=== PATIENT | male | born 1940 | race Two or more races ===

== ENCOUNTER 2017-08-16 14:05 | Inpatient (IN) | payer OTHER ==
[~2017-08-16] VITALS: Ht 172.7 cm; Wt 67.3 kg
[2017-08-16] MEDS ORDERED: SODIUM CHLORIDE 0.9% 1,000 ML IVB ONE (14:38)
[2017-08-16 15:38] LABS: Basophils # (auto) 0 uL; Basophils % (auto) 0.6 % (0.0-2.0); Eosinophils # (auto) 0 uL; Eosinophils % (auto) 0.1 % (0.0-7.0); Hematocrit 43.7 % (41.0-53.0); Hemoglobin 14.1 g/dL (13.5-17.5); Lymphocytes # (auto) 1.3 uL; Lymphocytes % (auto) 15.8 % (10.0-50.0); Mean Corpuscular Hemoglobin 27.4 pg (28.0-32.0); Mean Corpuscular Hgb Conc. 32.3 g/dL (32.0-36.0); Mean Platelet Volume 8.5 fL (6.9-10.8); Monocytes # (auto) 0.6 uL; Monocytes % (auto) 7.3 % (0.0-12.0); Neutrophils # (auto) 6.3 uL; Neutrophils % (auto) 76.2 % (37.0-80.0); Nucleated Red Blood Cells % 0.1 %; Platelet Count (auto) 247 10^3/uL (140-450); Red Cell Distribution Width 17.9 % (11.8-14.3); White Blood Cell 8.3 10^3/uL (4.4-10.8)
[2017-08-16 15:52] LABS: INR 1.01 (0.9-1.15); Partial Thromboplastin Time 25.9 sec (22.64-33.71)
[2017-08-16 15:59] LABS: Albumin 3.7 g/dL (3.4-5.0); Alkaline Phosphatase 85 U/L (45-117); Anion Gap 9 (5-15); Aspartate Aminotransferase 18 U/L (15-37); BUN/Creatinine Ratio 7.5; Bilirubin, Total 0.7 mg/dL (0.2-1.0); Blood Urea Nitrogen 6 mg/dL (7-18); Calcium 8.8 mg/dL (8.5-10.1); Carbon Dioxide 23 mmol/L (21-32); Chloride 107 mmol/L (98-107); GFR African American 120 mL/min; GFR Non-African American 99 mL/min; Glucose 110 mg/dL (74-106); Magnesium 2.6 mg/dL (1.6-2.6); Potassium 3.5 mmol/L (3.5-5.1); Sodium 139 mmol/L (136-145); Total Protein 7.5 g/dL (6.4-8.2)
[2017-08-16] MEDS ORDERED: amLODIPine BESYLATE 5 MG TAB PO ONE (17:15)
[2017-08-16] MEDS ORDERED: TEMAZEPAM 15 MG CAP PO PRN (17:15)
[2017-08-16] MEDS ORDERED: ACETAMINOPHEN 500 MG TAB PO PRN (17:15)
[2017-08-16] MEDS ORDERED: LORazepam 0.5 MG TAB PO PRN (17:15)
[2017-08-16] MEDS ORDERED: MORPHINE SULF INJ 2 MG/ML SYRINGE 1ML IV PRN ×2 (17:15)
[2017-08-16] MEDS ORDERED: LACTULOSE 20Gm/30ML SOLN PO PRN (17:15)
[2017-08-16] MEDS ORDERED: HYDROcodone-ACET 5/325MG TAB PO PRN (17:15)
[2017-08-16] MEDS ORDERED: NITROGLYCERIN 0.4 MG SL TAB SL PRN (17:15)
[2017-08-16] MEDS ORDERED: PROMETHAZINE HCL 25 MG/ML 1ML IV PRN (17:15)
[2017-08-16] MEDS ORDERED: LABETALOL HCL 5 MG/ML ML 20ML VIAL IV PRN ×2 (17:15)
[2017-08-16 17:51] LABS: Cholesterol 169 mg/dL (< 200); HDL Cholesterol 77 mg/dL (40-59); LDL Cholesterol 91 mg/dL (< 100); Triglycerides 100 mg/dL (< 150)
[2017-08-16 17:56] LABS: Urine Bilirubin Negative (Negative); Urine Blood Negative /uL (Negative); Urine Color Yellow (Yellow); Urine Glucose Normal (Normal); Urine Ketone Negative (Negative); Urine Nitrite Negative (Negative); Urine RBC <1 /hpf (0 - 3); Urine Urobilinogen Normal (Negative)
[2017-08-16] MEDS: SODIUM CHLORIDE 0.9% 1,000 ML IV SCH (18:06)
[2017-08-16 18:30] LABS: Temperature: 23.7 C (20.0-25.0)
[2017-08-16 19:06] VITALS: BP 158/86
[2017-08-16] MEDS ORDERED: THIAMINE HCL 100 MG/ML 2ML VIAL IV ONE (20:00)
[2017-08-16] MEDS ORDERED: chlordiazePOXIDE HCL 5 MG CAP PO PRN (20:00)
[2017-08-16 21:43] VITALS: BP 136/83
[2017-08-16] MEDS ORDERED: ATORVASTATIN 20 MG TAB PO SCH (22:00)
[2017-08-17 05:40] VITALS: BP 131/76
[2017-08-17] MEDS: SODIUM CHLORIDE 0.9% 1,000 ML IV SCH ×2 (05:55→18:14)
[2017-08-17 09:00] VITALS: BP 121/76
[2017-08-17] MEDS ORDERED: ASPirin 81 mg TAB PO SCH (10:00)
[2017-08-17] MEDS ORDERED: amLODIPine BESYLATE 5 MG TAB PO SCH (10:00)
[2017-08-17] MEDS ORDERED: ENOXAPARIN SOD 40 MG/0.4 ML SYRINGE SC SCH (10:00)
[2017-08-17] MEDS ORDERED: THIAMINE HCL 100 MG/ML 2ML VIAL IV SCH (10:00)
[2017-08-17 13:00] VITALS: BP 154/66
[2017-08-17] MEDS ORDERED: DONE5TAB11 PO (16:07)
[2017-08-17] MEDS ORDERED: ASPI81CH43 PO (16:07)
[2017-08-17] MEDS ORDERED: ATOR20TA50 PO (16:07)
[2017-08-17] MEDS ORDERED: AML5T PO (16:07)
[2017-08-17 16:35] VITALS: BP 126/72
[2017-08-17] MEDS ORDERED: DONEPEZIL HYDROCHLORIDE 5 MG TAB PO SCH (22:00)
== END 2017-08-17 18:00 | disposition home health service (06) | DRG 304 ==
LOC: ER 14:05 → TELE 14:06 → TELE-CENTR 18:44
PROVIDERS: ADMIT Internal Medicine; ATTEND Internal Medicine
DX: I11.9 Hypertensive heart disease without heart failure (principal); G93.41 Metabolic encephalopathy; I71.2 Thoracic aortic aneurysm, without rupture; F03.90 Unspecified dementia, unspecified severity, without behavioral disturbance, psychotic disturbance, mood disturbance, and anxiety; F32.9 Major depressive disorder, single episode, unspecified; K44.9 Diaphragmatic hernia without obstruction or gangrene; I67.2 Cerebral atherosclerosis; I70.0 Atherosclerosis of aorta; J47.9 Bronchiectasis, uncomplicated; K21.9 Gastro-esophageal reflux disease without esophagitis; Z63.4 Disappearance and death of family member; Z80.8 Family history of malignant neoplasm of other organs or systems; Z79.899 Other long term (current) drug therapy; Z79.82 Long term (current) use of aspirin
CPT/HCPCS: 36415; 70450; 71010; 71250; 80053; 80061; 80307; 81001; 82550; 82607; 82746; 82962; 83605; 83735; 84443; 84484; 85025; 85610; 85652; 85730; 87040; 93886; 95819; 97116; 97163; 97530

== ENCOUNTER 2018-04-23 12:36 | Emergency (ER) | payer OTHER, MEDICAID ==
[~2018-04-23] VITALS: Ht 210.8 cm; Wt 72.6 kg
[~2018-04-23 12:36] MED LIST: AML5T PO; ASPI81CH43 PO; ATOR20TA50 PO; DONE5TAB11 PO
[2018-04-23 13:44] LABS: Basophils # (auto) 0 uL; Basophils % (auto) 0.7 % (0.0-2.0); Eosinophils # (auto) 0.1 uL; Eosinophils % (auto) 1.3 % (0.0-7.0); Hematocrit 45.3 % (41.0-53.0); Hemoglobin 14.7 g/dL (13.5-17.5); Lymphocytes # (auto) 1.4 uL; Lymphocytes % (auto) 20.9 % (10.0-50.0); Mean Corpuscular Hemoglobin 28.6 pg (28.0-32.0); Mean Corpuscular Hgb Conc. 32.4 g/dL (32.0-36.0); Mean Corpuscular Volume 88.3 fL (80.0-100.0); Monocytes # (auto) 0.6 uL; Monocytes % (auto) 8.1 % (0.0-12.0); Neutrophils # (auto) 4.7 uL; Nucleated Red Blood Cells % 0.1 %; Platelet Count (auto) 306 10^3/uL (140-450); Red Blood Cells 5.12 10^6/uL (4.5-5.90); Red Cell Distribution Width 17.2 % (11.8-14.3); White Blood Cell 6.9 10^3/uL (4.4-10.8)
[2018-04-23 14:04] LABS: Chloride 108 mmol/L (98-107); Potassium 3.7 mmol/L (3.5-5.1); Sodium 139 mmol/L (136-145)
[2018-04-23 14:06] LABS: Albumin 3.6 g/dL (3.4-5.0); Anion Gap 10 (5-15); Blood Urea Nitrogen 7 mg/dL (7-18); Calcium 8.2 mg/dL (8.5-10.1); Carbon Dioxide 21 mmol/L (21-32); GFR African American 108 mL/min; GFR Non-African American 89 mL/min; Glucose 95 mg/dL (74-106); Magnesium 2.4 mg/dL (1.6-2.6)
[2018-04-23 14:20] LABS: Alanine Aminotransferase 16 U/L (16-61); Alkaline Phosphatase 79 U/L (45-117); Aspartate Aminotransferase 13 U/L (15-37); Bilirubin, Total 0.8 mg/dL (0.2-1.0); Total Protein 7.3 g/dL (6.4-8.2)
[2018-04-23] MEDS ORDERED: MANNITOL 20% SOLN 100 gm/500ml 350 ML IV ONE (15:00)
[2018-04-23] MEDS ORDERED: MANNITOL FTV 25% 12.5 GM/50 ML 50 ML IV ONE (15:09)
[2018-04-23 15:17] LABS: INR 0.98 (0.9-1.15); Partial Thromboplastin Time 26.9 sec (23.78-33.04); Prothrombin Time 10.5 sec (9.27-12.13)
[2018-04-23 15:34] VITALS: BP 132/64
== END 2018-04-23 17:14 | disposition short-term general hospital (02) ==
LOC: ER 12:36
DX: I62.00 Nontraumatic subdural hemorrhage, unspecified (principal); R41.82 Altered mental status, unspecified
CPT/HCPCS: 36415; 70450; 71046; 80053; 83735; 84484; 85025; 85610; 85730; 93005; 94761; 96374; 99291; J2150

== ENCOUNTER 2018-05-16 11:19 | Observation (INO) | payer OTHER, MEDICAID ==
[~2018-05-16] VITALS: Ht 180.3 cm; Wt 75.3 kg
[2018-05-16 12:09] LABS: Basophils # (auto) 0.1 uL; Eosinophils # (auto) 0.1 uL; Eosinophils % (auto) 1.8 % (0.0-7.0); Hematocrit 40.1 % (41.0-53.0); Hemoglobin 12.5 g/dL (13.5-17.5); Lymphocytes # (auto) 1.9 uL; Lymphocytes % (auto) 28.5 % (10.0-50.0); Mean Corpuscular Hgb Conc. 31.2 g/dL (32.0-36.0); Mean Corpuscular Volume 86.5 fL (80.0-100.0); Monocytes # (auto) 0.7 uL; Monocytes % (auto) 9.9 % (0.0-12.0); Neutrophils % (auto) 58.8 % (37.0-80.0); Nucleated Red Blood Cells % 0.1 %; Platelet Count (auto) 359 10^3/uL (140-450); Red Blood Cells 4.63 10^6/uL (4.5-5.90); Red Cell Distribution Width 16.7 % (11.8-14.3); White Blood Cell 6.7 10^3/uL (4.4-10.8)
[2018-05-16 12:34] LABS: Alanine Aminotransferase 19 U/L (16-61); Albumin 3.5 g/dL (3.4-5.0); Alkaline Phosphatase 95 U/L (45-117); Anion Gap 9 (5-15); Aspartate Aminotransferase 13 U/L (15-37); BUN/Creatinine Ratio 10.6; Bilirubin, Total 0.7 mg/dL (0.2-1.0); Blood Urea Nitrogen 10 mg/dL (7-18); Calcium 8.1 mg/dL (8.5-10.1); Carbon Dioxide 24 mmol/L (21-32); Chloride 103 mmol/L (98-107); GFR African American 100 mL/min; GFR Non-African American 82 mL/min; Glucose 121 mg/dL (74-106); Magnesium 2.6 mg/dL (1.6-2.6); Sodium 136 mmol/L (136-145); Total Protein 7.2 g/dL (6.4-8.2)
[2018-05-16] MEDS ORDERED: DEXAMETHASONE SOD PHOS 10MG/1ML VIAL INJ IV ONE (14:00)
[2018-05-16 14:38] VITALS: BP 136/77
== END 2018-05-16 14:55 | disposition short-term general hospital (02) | DRG 64 ==
LOC: ER 11:19 → OVERFLOW 11:20 → ER 14:48
PROVIDERS: ADMIT Family Medicine; ATTEND Family Medicine
DX: I62.00 Nontraumatic subdural hemorrhage, unspecified (principal); G93.6 Cerebral edema; I10 Essential (primary) hypertension; E78.5 Hyperlipidemia, unspecified; Z98.890 Other specified postprocedural states; Z82.49 Family history of ischemic heart disease and other diseases of the circulatory system
CPT/HCPCS: 36415; 70450; 80053; 80320; 83735; 84484; 85025; 93005; G0378; J1100; 96374; 99291

== ENCOUNTER → 2021-08-10 | Day surgery (SDC) | payer OTHER, MEDICAID ==
[~2021-08-10] VITALS: Ht 172.7 cm; Wt 59.0 kg
[~2021-08-10] MED LIST changes: +ACCU-CHEK COMFORT CURVE STRIP VI ONE; +ACETAMINOPHEN 500 MG TAB PO ONE; +ANGIOMAX 250 MG VIAL IV ONE; +CATHFLO ACTIVASE (ALTEPLASE) 2 MG VIAL IV ONE; +HEPARIN DRIP/D5W 100UNITS/ML 250 ML IV SCH; +HEPARIN SODIUM (PORCINE) 5000 UNITS/ML 1ML VIAL IV ONE; +HEPARIN SODIUM (PORCINE) 5000 UNITS/ML 1ML VIAL ONE; +HYDROmorphone HCL 2 MG/ML VL IV ONE; +IODIXANOL 320MG/ML 100ML BTL IV ONE; +LIDOCAINE 2%HCL (LOCAL ANESTH.) INJ 20ML MDV ONE; +LORazepam 2MG/ML-1ML VIAL IV ONE; +LORazepam 2MG/ML-1ML VIAL ONE; +MIDAZOLAM HCL 2MG/2ML 2ml VIAL (1mg/ml) ONE; +ONDANSETRON HCL 4 MG/2 ML VIAL IV ONE; +fentaNYL CITRATE 100 MCG/2 ML VL IV ONE; +fentaNYL CITRATE 100 MCG/2 ML VL ONE
[2021-08-10 03:54] LABS: Basophils # (auto) 0 10 ^3/uL (0-0.2); Basophils % (auto) 0.1 % (0.0-2.0); Eosinophils # (auto) 0 10 ^3/uL (0-0.8); Hematocrit 44.5 % (41.0-53.0); Hemoglobin 13.9 g/dL (13.5-17.5); Lymphocytes # (auto) 0.4 10 ^3/uL (0.4-5.4); Lymphocytes % (auto) 3.1 % (10.0-50.0); Mean Corpuscular Hemoglobin 24.1 pg (28.0-32.0); Mean Corpuscular Hgb Conc. 31.4 g/dL (32.0-36.0); Mean Corpuscular Volume 76.7 fL (80.0-100.0); Monocytes # (auto) 1.2 10 ^3/uL (0-1.3); Monocytes % (auto) 9.2 % (0.0-12.0); Neutrophils # (auto) 11.4 10 ^3/uL (1.6-8.6); Neutrophils % (auto) 87.6 % (37.0-80.0); Red Blood Cells 5.79 10^6/uL (4.5-5.90); Red Cell Distribution Width 18.2 % (11.8-14.3)
[2021-08-10 04:14] LABS: Albumin 2.5 g/dL (3.4-5.0); Calcium 8.6 mg/dL (8.5-10.1); Potassium 3.7 mmol/L (3.5-5.1)
[2021-08-10 04:26] LABS: BUN/Creatinine Ratio 37.5; Bilirubin, Total 1.8 mg/dL (0.2-1.0); Total Protein 7.4 g/dL (6.4-8.2)
[2021-08-10 23:02] LABS: INR 2.91 (0.9-1.15); Partial Thromboplastin Time 62.7 sec (23.6-33.0)
[2021-08-10 23:04] LABS: Albumin 2.2 g/dL (3.4-5.0); Calcium 8.1 mg/dL (8.5-10.1); Potassium 4.3 mmol/L (3.5-5.1)
[2021-08-10 23:07] LABS: Lactic Acid w/Reflex 3.7 mmol/L (0.4-2.0)
[2021-08-10 23:11] LABS: BUN/Creatinine Ratio 36.4; Bilirubin, Total 1.6 mg/dL (0.2-1.0); Total Protein 7.2 g/dL (6.4-8.2)
[2021-08-10 23:21] LABS: Basophils # (auto) 0 10 ^3/uL (0-0.2); Basophils % (auto) 0.1 % (0.0-2.0); Eosinophils # (auto) 0 10 ^3/uL (0-0.8); Lymphocytes # (auto) 0.9 10 ^3/uL (0.4-5.4); Monocytes # (auto) 1.7 10 ^3/uL (0-1.3); Nucleated Red Blood Cells % 0.1 %; White Blood Cell 14.1 10^3/uL (4.4-10.8)
[2021-08-10 23:22] LABS: Hematocrit 46.5 % (41.0-53.0); Hemoglobin 14.4 g/dL (13.5-17.5); Lymphocytes % (auto) 6.3 % (10.0-50.0); Mean Corpuscular Hemoglobin 24.1 pg (28.0-32.0); Mean Corpuscular Volume 77.6 fL (80.0-100.0); Monocytes % (auto) 12.2 % (0.0-12.0); Neutrophils # (auto) 11.5 10 ^3/uL (1.6-8.6); Neutrophils % (auto) 81.4 % (37.0-80.0); Red Cell Distribution Width 18.3 % (11.8-14.3)
[2021-08-11 06:03] LABS: INR 1.63 (0.9-1.15); Partial Thromboplastin Time 29.3 sec (23.6-33.0)
[2021-08-11 10:36] LABS: INR 1.77 (0.9-1.15); Partial Thromboplastin Time 68.2 sec (23.6-33.0)
[2021-08-11 14:22] LABS: Urine Bacteria NONE SEEN /hpf (None Seen); Urine Blood 3+ /uL (Negative); Urine Mucus FEW (None Seen); Urine WBC 3 /hpf (0 - 3)
[2021-08-11 14:23] LABS: Urine Specific Gravity > 1.050 (1.001-1.035)
[2021-08-11 14:42] VITALS: BP 97/71
== END | disposition home or self-care (01) ==
LOC: EDUNIT# 02:25 → EDBD 02:39 → ER 02:39 → CATH 02:40 → ER 08-11 15:15
PROVIDERS: ATTEND Internal Medicine
DX: R53.1 Weakness (principal); I10 Essential (primary) hypertension; I51.7 Cardiomegaly; I70.0 Atherosclerosis of aorta; F03.90 Unspecified dementia, unspecified severity, without behavioral disturbance, psychotic disturbance, mood disturbance, and anxiety; E78.5 Hyperlipidemia, unspecified; Z98.890 Other specified postprocedural states; Z79.899 Other long term (current) drug therapy; Z20.822 Contact with and (suspected) exposure to COVID-19
CPT/HCPCS: 32408; 36415; 70450; 71045; 80053; 81001; 82962; 83605; 83880; 84484; 85025; 85610; 85730; 87426; 93005; 93925; 96365; 96375; 96376; 99285; C1760; C1769; C1887; C1894; J0583; J1170; J1644; J2250; J2405; J2997; J3010; J7030; Q9967; 99152